=== PATIENT | female | born 1960 | race Caucasian/White ===

== ENCOUNTER 2023-12-24 17:06 | Inpatient (IN) | payer BC, OTHER ==
--- NOTE | 2023-12-24 19:37 | ED ---
Psych HPI - General Chief Complaint: Psychiatric Symptoms Stated Complaint: Mental Health Time Seen by Provider: 12/24/23 17:30 Source: patient Mode of arrival: ambulatory - History of Present Illness Initial Comments: 63-year-old female presents emergency department accompanied by family. Family states that the patient has not been sleeping. She has paranoid thoughts that people are out to get her and therefore she does not sleep. Family reports that she will break things in the home. She talks about things that do not make any sense. Patient reports that she has a migraine at this time. Has a history of migraines. States she used to be on medications for her headache but has been off of her medications as she does not have insurance any longer. She reports that she has had this headache since she was 5 years old. She denies any head injuries. She has been taking [id number] pain medications at home without any relief. She is to have Imitrex available. Patient cannot remember the last time she slept. She states that she does not sleep because her "things his shoes on the ground". Also reports that she cannot sleep because of the air conditioner running but also admits that the air conditioners have not been placed in the windows this summer. Sister is at bedside and admits that the patient is on reasonable. She denies any suicidal or homicidal ideations - Related Data Home Medications Medication Instructions Recorded Confirmed No Known Home Medications 12/24/23 12/25/23 Allergies Allergy/AdvReac Type Severity Reaction Status Date / Time paroxetine [From Paxil] AdvReac muscle Verified 12/25/23 03:53 spasms, involuntary movements Review of Systems ROS Statement: Those systems with pertinent positive or pertinent negative responses have been documented in the HPI. ROS Other: All systems not noted in ROS Statement are negative. Past Medical History Past Medical History: Thyroid Disorder Additional Past Medical History / Comment(s): Migraines History of Any Multi-Drug Resistant Organisms: None Reported Past Surgical History: Hysterectomy Past Psychological History: Anxiety, Depression Smoking Status: Never smoker Past Alcohol Use History: None Reported Past Drug Use History: Marijuana General Exam Limitations: no limitations General appearance: alert, in no apparent distress Head exam: Present: atraumatic, normocephalic, normal inspection Eye exam: Present: normal appearance, PERRL, EOMI. Absent: scleral icterus, conjunctival injection, periorbital swelling ENT exam: Present: normal exam, mucous membranes moist Neck exam: Present: normal inspection. Absent: tenderness, meningismus, lymphadenopathy Respiratory exam: Present: normal lung sounds bilaterally. Absent: respiratory distress, wheezes, rales, rhonchi, stridor Cardiovascular Exam: Present: regular rate, normal rhythm, normal heart sounds. Absent: systolic murmur, diastolic murmur, rubs, gallop, clicks GI/Abdominal exam: Present: soft, normal bowel sounds. Absent: distended, tenderness, guarding, rebound, rigid Extremities exam: Present: normal inspection, full ROM, normal capillary refill. Absent: tenderness, pedal edema, joint swelling, calf tenderness Back exam: Present: normal inspection Neurological exam: Present: alert, oriented X3, CN II-XII intact Psychiatric exam: Present: other (odd affect) Skin exam: Present: warm, dry, intact, normal color. Absent: rash Course Vital Signs 12/24/23 17:23 Temperature 98.6 F Pulse Rate 100 Respiratory 18 Rate Blood Pressure 174/112 O2 Sat by Pulse 100 Oximetry Medical Decision Making - Medical Decision Making Was pt. sent in by a medical professional or institution (, PA, BOX CAR LOADER, urgent care, hospital, or jail...) When possible be specific @ -No Did you speak to anyone other than the patient for history (EMS, parent, family, police, friend...)? What history was obtained from this source @ -I spoke with the patient's sister for history Did you review nursing and triage notes (agree or disagree)? Why? @ -I reviewed and agree with nursing and triage notes Were old charts reviewed (outside hosp., previous admission, EMS record, old EKG, old radiological studies, urgent care reports/EKG's, jail records)? Report findings @ -No old charts were reviewed Differential Diagnosis (chest pain, altered mental status, abdominal pain women, abdominal pain men, vaginal bleeding, weakness, fever, dyspnea, syncope, headache, dizziness, GI bleed, back pain, seizure, CVA, palpatations, mental health, musculoskeletal)? @ -Differential Mental Health Depression, anxiety, bipolar, psychosis, schizophrenia, borderline personality, situational depression, adjustment disorder, behavioral disorder, brain tumor, malingering, substance abuse, encephalopathy, medication reaction, dementia, hypothyroidism, degenerative neurologic disorder, lupus.... This is not meant to be all-inclusive list EKG interpreted by me (3pts min.). @ -Not done X-rays interpreted by me (1pt min.). @ -None done CT interpreted by me (1pt min.). @ -None done U/S interpreted by me (1pt. min.). @ -None done What testing was considered but not performed or refused? (CT, X-rays, U/S, labs)? Why? @ -None What meds were considered but not given or refused? Why? @ -None Did you discuss the management of the patient with other professionals (professionals i.e. DrDaniela, PA, BOX CAR LOADER, lab, RT, psych nurse, hospice social worker, sports lawyer, teacher, airplane first officer, medical case worker)? Give summary @ -Spoke with EPS to evaluate the patient Was smoking cessation discussed for >3mins.? @ -No Was critical care preformed (if so, how long)? @ -No Were there social determinants of health that impacted care today? How? (Homelessness, low income, unemployed, alcoholism, drug addiction, transportation, low edu. Level, literacy, decrease access to med. care, custodial, rehab)? @ -No Was there de-escalation of care discussed even if they declined (Discuss DNR or withdrawal of care, Hospice)? DNR status @ -No What co-morbidities impacted this encounter? (DM, HTN, Smoking, COPD, CAD, Cancer, CVA, ARF, Chemo, Hep., AIDS, mental health diagnosis, sleep apnea, morbid obesity)? @ -None Was patient admitted / discharged? Hospital course, mention meds given and route, prescriptions, significant lab abnormalities, going to OR and other pertinent info. @ -Upon arrival patient seen and evaluated in room 24. Thorough history and physical exam was performed. Patient is petitioned by family. I did conduct laboratory studies as the patient is supposed to be on several medications that she has not. Laboratory studies within normal limits. She is cleared for EPS at this time. She is currently awaiting EPS evaluation will be signed out to Dr. Engel Undiagnosed new problem with uncertain prognosis? @ -No Drug Therapy requiring intensive monitoring for toxicity (Heparin, Nitro, Insulin, Cardizem)? @ -No Were any procedures done? @ -No Diagnosis/symptom? @ -Acute paranoid behavior Acute, or Chronic, or Acute on Chronic? @ -Acute Uncomplicated (without systemic symptoms) or Complicated (systemic symptoms)? @ -Complicated Side effects of treatment? @ -No Exacerbation, Progression, or Severe Exacerbation? @ -No Poses a threat to life or bodily function? How? (Chest pain, USA, RI, pneumonia, PE, COPD, DKA, ARF, appy, cholecystitis, CVA, Diverticulitis, Homicidal, Suicidal, threat to staff... and all critical care pts) @ -No - Lab Data Result diagrams: 12/24/23 20:18 12/24/23 20:18 Lab Results 12/24/23 12/24/23 12/24/23 Range/Units 20:18 20:18 20:18 WBC 7.4 (3.8-10.6) k/uL RBC 4.74 (3.80-5.40) m/uL Hgb 14.7 (11.4-16.0) gm/dL Hct 44.7 (34.0-46.0) % MCV 94.3 (80.0-100.0) fL MCH 31.1 (25.0-35.0) pg MCHC 32.9 (31.0-37.0) g/dL RDW 12.4 (11.5-15.5) % Plt Count 254 (150-450) k/uL MPV 10.7 Neutrophils % 66 % Lymphocytes % 20 % Monocytes % 6 % Eosinophils % 5 % Basophils % 1 % Neutrophils # 4.8 (1.3-7.7) k/uL Lymphocytes # 1.5 (1.0-4.8) k/uL Monocytes # 0.5 (0-1.0) k/uL Eosinophils # 0.4 (0-0.7) k/uL Basophils # 0.1 (0-0.2) k/uL Sodium 140 (137-145) mmol/L Potassium 3.8 (3.5-5.1) mmol/L Chloride 106 (98-107) mmol/L Carbon Dioxide 27 (22-30) mmol/L Anion Gap 7 mmol/L BUN 14 (7-17) mg/dL Creatinine 0.70 (0.52-1.04) mg/dL Est GFR (CKD-EPI)AfAm >90 (>60 ml/min/1.73 sqM) Est GFR (CKD-EPI)NonAf >90 (>60 ml/min/1.73 sqM) Glucose 100 H (74-99) mg/dL Calcium 9.9 (8.4-10.2) mg/dL Total Bilirubin 0.4 (0.2-1.3) mg/dL AST 28 (14-36) U/L ALT 32 (4-34) U/L Alkaline Phosphatase 109 (38-126) U/L Total Protein 7.3 (6.3-8.2) g/dL Albumin 4.4 (3.5-5.0) g/dL TSH 90.100 H (0.465-4.680) mIU/L Free T4 0.37 L (0.78-2.19) ng/dL Urine Color Light Yellow Urine Appearance Cloudy H (Clear) Urine pH 6.0 (5.0-8.0) Ur Specific [place] 1.015 (1.001-1.035) Urine Protein Negative (Negative) Urine Glucose (UA) Negative (Negative) Urine Ketones Negative (Negative) Urine Blood Negative (Negative) Urine Nitrite Negative (Negative) Urine Bilirubin Negative (Negative) Urine Urobilinogen <2.0 (<2.0) mg/dL Ur Leukocyte Esterase Large H (Negative) Urine RBC 8 H (0-5) /hpf Urine WBC 34 H (0-5) /hpf Ur Squamous Epith Cells 7 H (0-4) /hpf Urine Bacteria Rare H (None) /hpf Urine Mucus Few H (None) /hpf Urine Opiates Screen Not Detected (NotDetected) Ur Oxycodone Screen Detected H (NotDetected) Urine Methadone Screen Not Detected (NotDetected) Ur Barbiturates Screen Not Detected (NotDetected) U Tricyclic Antidepress Not Detected (NotDetected) Ur Phencyclidine Scrn Not Detected (NotDetected) Ur Amphetamines Screen Not Detected (NotDetected) U Methamphetamines Scrn Not Detected (NotDetected) U Benzodiazepines Scrn Not Detected (NotDetected) Urine Cocaine Screen Not Detected (NotDetected) U Marijuana (THC) Screen Detected H (NotDetected) Influenza Type A (PCR) (Not Detectd) Influenza Type B (PCR) (Not Detectd) RSV (PCR) (Not Detectd) SARS-CoV-2 (PCR) (Not Detectd) 12/25/23 Range/Units 02:29 WBC (3.8-10.6) k/uL RBC (3.80-5.40) m/uL Hgb (11.4-16.0) gm/dL Hct (34.0-46.0) % MCV (80.0-100.0) fL MCH (25.0-35.0) pg MCHC (31.0-37.0) g/dL RDW (11.5-15.5) % Plt Count (150-450) k/uL MPV Neutrophils % % Lymphocytes % % Monocytes % % Eosinophils % % Basophils % % Neutrophils # (1.3-7.7) k/uL Lymphocytes # (1.0-4.8) k/uL Monocytes # (0-1.0) k/uL Eosinophils # (0-0.7) k/uL Basophils # (0-0.2) k/uL Sodium (137-145) mmol/L Potassium (3.5-5.1) mmol/L Chloride (98-107) mmol/L Carbon Dioxide (22-30) mmol/L Anion Gap mmol/L BUN (7-17) mg/dL Creatinine (0.52-1.04) mg/dL Est GFR (CKD-EPI)AfAm (>60 ml/min/1.73 sqM) Est GFR (CKD-EPI)NonAf (>60 ml/min/1.73 sqM) Glucose (74-99) mg/dL Calcium (8.4-10.2) mg/dL Total Bilirubin (0.2-1.3) mg/dL AST (14-36) U/L ALT (4-34) U/L Alkaline Phosphatase (38-126) U/L Total Protein (6.3-8.2) g/dL Albumin (3.5-5.0) g/dL TSH (0.465-4.680) mIU/L Free T4 (0.78-2.19) ng/dL Urine Color Urine Appearance (Clear) Urine pH (5.0-8.0) Ur Specific [place] (1.001-1.035) Urine Protein (Negative) Urine Glucose (UA) (Negative) Urine Ketones (Negative) Urine Blood (Negative) Urine Nitrite (Negative) Urine Bilirubin (Negative) Urine Urobilinogen (<2.0) mg/dL Ur Leukocyte Esterase (Negative) Urine RBC (0-5) /hpf Urine WBC (0-5) /hpf Ur Squamous Epith Cells (0-4) /hpf Urine Bacteria (None) /hpf Urine Mucus (None) /hpf Urine Opiates Screen (NotDetected) Ur Oxycodone Screen (NotDetected) Urine Methadone Screen (NotDetected) Ur Barbiturates Screen (NotDetected) U Tricyclic Antidepress (NotDetected) Ur Phencyclidine Scrn (NotDetected) Ur Amphetamines Screen (NotDetected) U Methamphetamines Scrn (NotDetected) U Benzodiazepines Scrn (NotDetected) Urine Cocaine Screen (NotDetected) U Marijuana (THC) Screen (NotDetected) Influenza Type A (PCR) Not Detected (Not Detectd) Influenza Type B (PCR) Not Detected (Not Detectd) RSV (PCR) Not Detected (Not Detectd) SARS-CoV-2 (PCR) Not Detected (Not Detectd) Disposition Clinical Impression: Acute psychosis Disposition: TRANSFER TO PSYCH HOSP/UNIT Condition: Stable Is patient prescribed a controlled substance at d/c from ED?: No
[2023-12-24] MEDS: SUMAtriptan succinate 6 MG/0.5 ML VIAL SQ STA (20:31)
[2023-12-24 21:10] LABS: Oxycodone Screen, Urine Detected (NotDetected); Urn Cannabinoid Scrn Detected (NotDetected)
[2023-12-24 21:11] LABS: Amphetamine Screen,Urine Not Detected (NotDetected); Barbiturate Screen,Urine Not Detected (NotDetected); Basophils # (A) 0.1 k/uL (0-0.2); Basophils % (A) 1 %; Benzodiazepines Screen,Urine Not Detected (NotDetected); Cocaine Screen,Urine Not Detected (NotDetected); Eosinophils # (A) 0.4 k/uL (0-0.7); Eosinophils % (A) 5 %; HCT 44.7 % (34.0-46.0); HGB 14.7 gm/dL (11.4-16.0); Lymphocytes # (A) 1.5 k/uL (1.0-4.8); Lymphocytes % (A) 20 %; MCH 31.1 pg (25.0-35.0); MCHC 32.9 g/dL (31.0-37.0); MCV 94.3 fL (80.0-100.0); Mean Platelet Volume 10.7; Methadone Screen, Urine Not Detected (NotDetected); Monocytes # (A) 0.5 k/uL (0-1.0); Monocytes % (A) 6 %; Neutrophils # (A) 4.8 k/uL (1.3-7.7); Neutrophils % (A) 66 %; Opiate Screen,Urine Not Detected (NotDetected); Phencyclidine Screen,Urine Not Detected (NotDetected); Platelet Count 254 k/uL (150-450); RBC 4.74 m/uL (3.80-5.40); RDW 12.4 % (11.5-15.5); Tricyclic Antidepressant,Urine Not Detected (NotDetected); WBC 7.4 k/uL (3.8-10.6)
[2023-12-24 21:22] LABS: Appearance,Urine Cloudy (Clear); Bacteria,Urine Rare /hpf; Bilirubin,Urine Negative (Negative); Blood,Urine Negative (Negative); Color,Urine Light Yellow; Glucose,Urine (UA) Negative (Negative); Ketones,Urine Negative (Negative); Leukocyte Esterase,Urine Large (Negative); Mucus,Urine Few /hpf; Nitrite,Urine Negative (Negative); Protein,Urine Negative (Negative); RBC,Urine 8 /hpf (0-5); Specific Gravity,Urine 1.015 (1.001-1.035); Squamous Epithelial Cell,Urine 7 /hpf (0-4); Urobilinogen,Urine <2.0 mg/dL (<2.0); WBC,Urine 34 /hpf (0-5)
[2023-12-24 21:24] LABS: ALT 32 U/L (4-34); AST 28 U/L (14-36); African American GFR (CKD) >90 (>60 ml/min/1.73 sqM); Albumin 4.4 g/dL (3.5-5.0); Alkaline Phosphatase 109 U/L (38-126); Anion Gap 7 mmol/L; Blood Urea Nitrogen 14 mg/dL (7-17); Calcium 9.9 mg/dL (8.4-10.2); Carbon Dioxide 27 mmol/L (22-30); Chloride 106 mmol/L (98-107); Glucose 100 mg/dL (74-99); Non-African American GFR(CKD) >90 (>60 ml/min/1.73 sqM); Potassium 3.8 mmol/L (3.5-5.1); Sodium 140 mmol/L (137-145); Total Bilirubin 0.4 mg/dL (0.2-1.3); Total Protein 7.3 g/dL (6.3-8.2)
[2023-12-24 22:28] LABS: T4, Free (Free Thyroxine) 0.37 ng/dL (0.78-2.19)
[2023-12-25] MEDS ORDERED: MAGNESIUM HYDROXIDE 2,400 MG/30 ML CUP PO PRN (03:46)
[2023-12-25] MEDS ORDERED: traZODone HCL 50 MG TAB PO PRN (03:46)
[2023-12-25] MEDS ORDERED: LORazepam 2 MG/ML INJ IM PRN (03:46)
[2023-12-25] MEDS ORDERED: HALOPERIDOL LACTATE 5 MG/ML 1 ML VIAL IM PRN (03:46)
[2023-12-25] MEDS: LORazepam 1 MG TAB PO PRN (04:15)
[2023-12-25] MEDS: LEVOTHYROXINE 88 MCG TAB PO SCH (07:05)
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
[2023-12-25] MEDS: carvediloL 3.125 MG TAB PO SCH (12:04)
[2023-12-25] MEDS: DIVALPROEX ER 250 MG TAB.ER.24H PO SCH (12:04)
[2023-12-25] MEDS: SUMAtriptan succinate 50 MG TAB PO PRN (12:04)
[2023-12-25] MEDS: carvediloL 6.25 MG TAB PO STA (18:55)
[2023-12-25] MEDS: QUEtiapine 25 MG TAB PO SCH (21:42)
--- NOTE | 2023-12-26 02:30 | P.MDCNMH ---
Past Medical History Past Medical History: Thyroid Disorder Additional Past Medical History / Comment(s): Migraines History of Any Multi-Drug Resistant Organisms: None Reported Past Surgical History: Hysterectomy Past Anesthesia/Blood Transfusion Reactions: Unable to Obtain Past Psychological History: Anxiety, Depression Smoking Status: Never smoker Past Alcohol Use History: None Reported Past Drug Use History: Marijuana Medications and Allergies Home Medications Medication Instructions Recorded Confirmed Type No Known Home Medications 12/24/23 12/25/23 History Allergies Allergy/AdvReac Type Severity Reaction Status Date / Time paroxetine [From Paxil] AdvReac muscle Verified 12/25/23 03:53 spasms, involuntary movements Physical Exam Vitals: Vital Signs Temp Pulse Resp BP Pulse Ox 12/25/23 18:54 91 117/76 12/25/23 17:08 103 H 165/100 12/25/23 14:26 160/110 12/25/23 12:46 171/100 12/25/23 12:06 103 H 173/110 12/25/23 07:08 97.7 F 97 16 173/109 98 12/25/23 04:54 98.0 F 98 15 196/113 99 Results CBC & Chem 7: 12/24/23 20:18 12/24/23 20:18
[2023-12-26] MEDS ORDERED: carvediloL 12.5 MG TAB PO SCH (07:30)
[2023-12-26] MEDS: carvediloL 3.125 MG TAB PO SCH (09:48)
[2023-12-26 10:42] LABS: ALT 28 U/L (4-34); AST 32 U/L (14-36); Albumin 4.4 g/dL (3.5-5.0); Alkaline Phosphatase 79 U/L (38-126); Bilirubin, Delta 0.4 mg/dL (0.0-0.2); Bilirubin,Unconjugated 0.3 mg/dL (0.0-1.1); Total Bilirubin 0.7 mg/dL (0.2-1.3); Total Protein 7.3 g/dL (6.3-8.2)
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
[2023-12-26 15:28] LABS: Chol/HDL Ratio 4.61 Ratio; LDL Cholesterol,Calculated 194.2 mg/dL (0.0-131.0)
[2023-12-26] MEDS: IBUPROFEN 600 MG TAB PO PRN (15:55)
[2023-12-26] MEDS: DIVALPROEX ER 500 MG TAB.ER.24H PO SCH (21:36)
--- NOTE | 2023-12-27 11:42 | P.PN ---
Progress Note - Text Progress Note Date: 12/27/23 Interval History: Patient was seen in her room and was directable and agreeable to speak with wr iter at the bedside. She states she is tired today. She claims she slept pretty well last night. She states she is hungry because she did not get up for breakfast. Offered patient crackers, patient refused. Patient also states she feels dehydrated. Offered the patient water, patient refused. States that water will make her vomit, because she has nothing in her stomach. Went over unit rules with patient, and having meals in the dining room. Patient verbalized understanding. At this time patient denies any suicidal or homical ideations, intent or plan. Patient denies any auditory, visual hallucinations and denies any paranoia or delusions. Patient denies any side effects from the medications and has been compliant with meds. MENTAL STATUS EXAM: General Appearance: Patient appears to be stated age is alert, directable, and attempts to cooperate. Patient appears to have good hygiene and grooming. Behavior: Patient is seated without any agitated behavior Speech: Patient's speech is fluent and nonpressured. Mood/Affect: Patient reports their mood is anxious, affect is congruent and constricted. Suicidality/Homicidality: Patient denies having any homicidal ideation intent or plan. Denies any suicidal ideations intent or plan Perceptions: Patient denies any visual hallucinations and denies any auditory hallucinations Though content/process: There is no evidence of any delusional thought content and thought process is linear. minimizing need for treatment and hospitalization. Memory and concentration: AOX3, grossly intact for the purposes of this session. Judgment and insight: poor IMPRESSIONS: psychosis, unspecified cannabis use disorder PLAN: -Patient is admitted under involuntary status to MHU for stabilization of psychiatric symptoms and safety. Patient has not signed adult voluntary form or medication consent and is placed in patient's chart. -Medications : Depakote 500mg qhs for psychosis, Seroquel 25mg qhs for mood/anxiety -medical ordered Coreg for BP. -Ativan and Haldol PRN for agitation/aggression -NRT - nicotine patch -SW on board for discharge planning. Encourage patient to participate in groups to work on coping skills. patient deferred with her securities attorney.
[2023-12-27] MEDS: carvediloL 6.25 MG TAB PO SCH (18:00)
[2023-12-27] MEDS: haloperidoL 5 MG TAB PO PRN (21:13)
[2023-12-28] MEDS: MAG HYDROX/AL HYDROX/SIMETH 355 ML BOTTLE PO PRN (12:20)
--- NOTE | 2023-12-28 16:08 | P.PN ---
Progress Note - Text Progress Note Date: 12/28/23 Interval history: Patient was seen wandering the hallways and was directable and agreeable to speak with service writer advisor. Patient continues to have poor insight into condition but has been compliant with medication. She reports tolerating medications well and would like to be continued on them. She reports "fine" but has been hoping to go home. She states that she would be completing chores at home at this time of day. She endorses sleeping a little current dose of the medication. She denies other concerns and reports good energy and appetite. At this time patient denies any suicidal or homicidal ideations intent or plan. Denies any Auditory or visual hallucinations. Patient denies any side effects from the medications and has been compliant with meds. Mental status exam: General Appearance: Patient appears to be stated age is alert, directable, and cooperative. Behavior: No agitated behavior. Patient is calm and directable Speech: Patient's speech is fluent and nonpressured. Mood/Affect: Mood is improving mildly, affect is congruent and constricted. Suicidality/Homicidality: Patient denies having any suicidal or homicidal ideation intent or plan. Perceptions: Patient denies any auditory or visual hallucinations. Though content/process: There is no evidence of any delusional thought content and thought process is linear and goal-directed. Memory and concentration: AOX3, grossly intact for the purposes of this session Judgment and insight: poor Assessment/Plan: Continue with current diagnosis. Patient continues to meet criteria for inpatient psychiatric admission for symptom stabilization and safety. Patient will be maintained on current psychotropic medication regimen. Monitor for medication compliance and for any psychotropic medication side effects. Will continue to monitor ongoing response to treatment. Encouraged participation in milieu.
--- NOTE | 2023-12-29 14:38 | P.PN ---
Progress Note - Text Progress Note Date: 12/29/23 Interval history: Patient was seen wandering the hallways and was directable and agreeable to speak with group underwriter. Patient is seen to be tearful throughout interaction, stating that she does not want to continue to be hospitalized here. She does not understand the need for treatment. She states that when she tries to read, she is unable to process the words because she finds her mind perseverating on possibility of discharge. She reports having low mood due to this. She states this she spoke with her and family. She reports poor sleep and needed Ativan last night. She was agreeable with Seroquel being increased while discussing medications. At this time patient denies any suicidal or homicidal ideations intent or plan. Denies any Auditory or visual hallucinations. Patient denies any side effects from the medications and has been compliant with meds. Mental status exam: General Appearance: Patient appears to be stated age is alert, directable, and cooperative. Behavior: No agitated behavior. Patient is calm and directable Speech: Patient's speech is fluent and nonpressured. Mood/Affect: Mood is sad, affect is tearful Suicidality/Homicidality: Patient denies having any suicidal or homicidal ideation intent or plan. Perceptions: Patient denies any auditory or visual hallucinations. Though content/process: There is no evidence of any delusional thought content and thought process is linear and goal-directed. Focused on discharge Memory and concentration: AOX3, grossly intact for the purposes of this session Judgment and insight: poor Assessment/Plan: Continue with current diagnosis. Might benefit from outpatient assessment/evaluation of early onset dementia Patient continues to meet criteria for inpatient psychiatric admission for symptom stabilization and safety. Patient will be maintained on current psychotropic medication regimen. Increase Seroquel to 100 mg daily for mood, sleep and psychosis. Monitor for medication compliance and for any psychotropic medication side effects. Will continue to monitor ongoing response to treatment. Encouraged participation in milieu.
[2023-12-29] MEDS ORDERED: ARIPiprazole 5 MG TAB PO SCH (14:45)
[2023-12-29] MEDS: QUEtiapine 100 MG TAB PO SCH (21:33)
[2023-12-30] MEDS ORDERED: hydrOXYzine pamoate 25 MG CAP PO PRN (10:20)
--- NOTE | 2023-12-30 10:57 | P.PN ---
Progress Note - Text Progress Note Date: 12/30/23 Interval History: Patient was seen in her room and was directable and agreeable to speak with wr iter in the office. The patient states that she is sad today, about being in here. She verbalizes that she feels she is ready to go home. She states that the medication makes her groggy. Industrial Hygenist asked the patient why she is taking PRN ativan and haldol. Patient states that she is taking it because she is having anxiety because she is being in here. apparently patient was having a panic attack according to nursing notes. Patient is secluding to her room, and claims she does not want to go to groups, because she is not a group type of person. Endorses good sleep, and good appetite. Stated she does not know why she is in here, and that the petition is all lies. She claims to not have seen her sister more than 3 times in the past 3 years. At this time patient denies any suicidal or homicidal ideations, intent or plan. Patient denies any auditory, visual hallucinations and denies any paranoia or delusions. Patient denies any side effects from the medications and has been compliant with meds. MENTAL STATUS EXAM: General Appearance: Patient appears to be stated age is alert, directable, and attempts to cooperate. Patient appears to have good hygiene and grooming. Behavior: Patient is seated without any agitated behavior Speech: Patient's speech is fluent and nonpressured. Mood/Affect: Patient reports their mood is sad, affect is congruent and constricted. Suicidality/Homicidality: Patient denies having any homicidal ideation intent or plan. Denies any suicidal ideations intent or plan Perceptions: Patient denies any visual hallucinations and denies any auditory hallucinations. Focused on discharge. Though content/process: There is no evidence of any delusional thought content and thought process is linear. minimizing need for treatment and hospitalization. Memory and concentration: AOX3, grossly intact for the purposes of this session. Judgment and insight: poor IMPRESSIONS: psychosis, unspecified cannabis use disorder PLAN: -Patient is admitted under involuntary status to MHU for stabilization of psychiatric symptoms and safety. Patient has not signed adult voluntary form or medication consent and is placed in patient's chart. -Medications : Depakote 500mg qhs for psychosis, Seroquel 100mg qhs for mood/anxiety, add Zoloft 50mg daily for mood/anxiety. add visteral 25mg q6 prn for anxiety -medical ordered Coreg for BP. -Ativan and Haldol PRN for agitation/aggression -NRT - nicotine patch -SW on board for discharge planning. Encourage patient to participate in groups to work on coping skills. patient deferred with her personal injury attorney. Likely discharge saturday vs saturday, if patient psychiatrically improves.
[2023-12-30] MEDS: SERTRALINE 50 MG TAB PO SCH (13:10)
[2023-12-30] MEDS: ACETAMINOPHEN TAB 325 MG TAB PO PRN (16:33)
[2023-12-31 10:51] LABS: Appearance,Urine Clear (Clear); Bilirubin,Urine Negative (Negative); Blood,Urine Negative (Negative); Color,Urine Light Yellow; Glucose,Urine (UA) Negative (Negative); Ketones,Urine Trace (Negative); Leukocyte Esterase,Urine Negative (Negative); Nitrite,Urine Negative (Negative); PH, Urine 7.5 (5.0-8.0); Protein,Urine Negative (Negative); Specific Gravity,Urine 1.015 (1.001-1.035); Urobilinogen,Urine <2.0 mg/dL (<2.0)
--- NOTE | 2023-12-31 10:59 | P.PN ---
Progress Note - Text Progress Note Date: 12/31/23 Interval History: Patient was seen in her room and was directable and agreeable to speak with wr iter in the office. The patient states that she is feeling "back to her old self" today. She is not endorsing any problems with mood, or anxiety. She has been trying to be more active on the unit, and going to some groups. She stated she was having problems initiating sleep last night. Analytical Clerk spoke with patient about medication changes to help with sleep, patient agreeable. She is endorsing a good appetite. At this time patient denies any suicidal or homicidal ideations, intent or plan. Patient denies any auditory, visual hallucinations and denies any paranoia or delusions. Patient denies any side effects from the medications and has been compliant with meds. MENTAL STATUS EXAM: General Appearance: Patient appears to be stated age is alert, directable, and attempts to cooperate. Patient appears to have good hygiene and grooming. Behavior: Patient is seated without any agitated behavior Speech: Patient's speech is fluent and nonpressured. Mood/Affect: Patient reports their mood is good, affect is congruent and constricted. mildly improving Suicidality/Homicidality: Patient denies having any homicidal ideation intent or plan. Denies any suicidal ideations intent or plan Perceptions: Patient denies any visual hallucinations and denies any auditory hallucinations. Though content/process: There is no evidence of any delusional thought content and thought process is linear. mildly improving Memory and concentration: AOX3, grossly intact for the purposes of this session. Judgment and insight: improving IMPRESSIONS: psychosis, unspecified cannabis use disorder PLAN: -Patient is admitted under involuntary status to MHU for stabilization of psychiatric symptoms and safety. Patient has not signed adult voluntary form or medication consent and is placed in patient's chart. -Medications : Depakote 500mg qhs for psychosis, Seroquel 100mg qhs for mood/anxiety, Zoloft 50mg daily for mood/anxiety. change visteral 50mg q8 prn for anxiety, add trazodone 100mg qhs prn for sleep -d/c Ativan prn due to possible misuse and potential for tolerance. -NRT - nicotine patch -SW on board for discharge planning. Encourage patient to participate in groups to work on coping skills. patient deferred with her consumer attorney. Likely discharge tomorrow, if patient psychiatrically improves.
[2023-12-31] MEDS: hydrOXYzine pamoate 25 MG CAP PO PRN (12:46)
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
[2023-12-31] MEDS: LIDOCAINE 4% PATCH TOPICAL SCH (19:08)
[2023-12-31] MEDS: traZODone HCL 100 MG TAB PO PRN (20:26)
[2024-01-01 07:14] VITALS: TEMP 97
[2024-01-01] MEDS: ATORVASTATIN 20 MG TAB PO SCH (08:25)
[2024-01-01] MEDS ORDERED: FENOFIBRATE 54 MG TAB PO SCH (09:00)
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
[2024-01-01] MEDS: QUEtiapine 25 MG TAB PO SCH (17:29)
[2024-01-02 08:26] VITALS: BP 150/83; PULSE 71; RESP 18
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
== END 2024-01-02 13:30 | disposition home or self-care (01) | DRG 885 ==
LOC: EC 17:06 → 3MHU 12-25 03:44
PROVIDERS: ADMIT Psychiatry & Neurology Psychiatry; ATTEND Psychiatry & Neurology Psychiatry
DX: F23 Brief psychotic disorder (principal); E03.9 Hypothyroidism, unspecified; F12.10 Cannabis abuse, uncomplicated; F32.A Depression, unspecified; Z11.52 Encounter for screening for COVID-19; F41.9 Anxiety disorder, unspecified; G89.21 Chronic pain due to trauma; M54.9 Dorsalgia, unspecified; G47.00 Insomnia, unspecified; E78.5 Hyperlipidemia, unspecified; F41.0 Panic disorder [episodic paroxysmal anxiety]; Z59.7 Insufficient social insurance and welfare support; Z71.51 Drug abuse counseling and surveillance of drug abuser; Z56.0 Unemployment, unspecified; Z59.41 Food insecurity; Z88.8 Allergy status to other drugs, medicaments and biological substances
CPT/HCPCS: 36415; 80053; 80061; 80076; 80306; 81001; 81003; 82075; 83036; 84439; 84443; 85025; 87636; 96372; 99285